=== PATIENT | female | born 1945 | race Hispanic/Latino ===

== ENCOUNTER 2022-12-10 15:36 | Outpatient (CLI) | payer MEDICARE, OTHER | END 2022-12-10 15:37 | disposition home or self-care (01) | LOC: BICMAMMO 15:36 | PROVIDERS: ATTEND Internal Medicine | DX: Z12.31 Encounter for screening mammogram for malignant neoplasm of breast (principal); Z80.3 Family history of malignant neoplasm of breast | CPT/HCPCS: 77063; 77067 ==

== ENCOUNTER 2024-12-26 13:15 | Outpatient (CLI) | payer MEDICARE, OTHER | END 2024-12-26 13:16 | disposition home or self-care (01) | LOC: BICRAD 13:15 | PROVIDERS: ATTEND Nurse Practitioner Family | DX: M25.562 Pain in left knee (principal); M17.12 Unilateral primary osteoarthritis, left knee ==